=== PATIENT | female | born 1975 | race African-American/Black ===

== ENCOUNTER 2020-06-20 17:05 | Emergency (ER) | payer MEDICAID ==
[~2020-06-20] VITALS: Ht 160 cm; Wt 90.2 kg
--- NOTE | 2020-06-20 17:24 | EKG ---
[address] [address] Test Date: 2020-06-20 Test Time: 17:14:51 Pat Name: [facility] Department: Room: Gender: F Highway Maintainer: CRISTIAN : 1975 Requested By: COSMO SIMMONS Order Number: [id number] Reading MD: Measurements Intervals [place] Rate: 104 P: 42 AR: 164 QRS: 25 QRSD: 84 T: 46 QT: 328 QTc: 432 Interpretive Statements SINUS TACHYCARDIA LEFT ATRIAL ABNORMALITY INCOMPLETE RIGHT BUNDLE BRANCH BLOCK ABNORMAL ECG RI6.02 No previous ECG available for comparison
--- NOTE | 2020-06-20 17:28 | PHYS DOC ---
Past History Past Medical History: Hypertension (COSMO SIMMONS APRN) Past Surgical History: (COSMO SIMMONS APRN) Alcohol Use: Occasionally (COSMO SIMMONS APRN) Adult General Chief Complaint Chief Complaint: CHEST PAIN HPI HPI Patient is a female with history of hypertension presenting to the ED today complaining of 8 out of 10 sharp left-sided chest pain constantly for 2 weeks. She states she tried [place] which helped a little but it comes back. Patient denies any fever, coughing, congestion. Reports nothing specifically exacerbates the pain. (COSMO SIMMONS APRN) Review of Systems Review of Systems Constitutional: Denies fever or chills [] Eyes: Denies change in visual acuity, redness, or eye pain [] HENT: Denies nasal congestion or sore throat [] Respiratory: Denies cough or shortness of breath [] Cardiovascular: Reports left-sided chest pain GI: Denies abdominal pain, nausea, vomiting, bloody stools or diarrhea [] : Denies dysuria or hematuria [] Musculoskeletal: Denies back pain or joint pain [] Integument: Denies rash or skin lesions [] Neurologic: Denies headache, focal weakness or sensory changes [] All other systems were reviewed and found to be within normal limits, except as documented in this note. (COSMO SIMMONS APRN) Current Medications Current Medications Current Medications Medications (Trade) Dose Ordered Sig/Jeff Start Time Stop Time Status Last Admin Dose Admin Aspirin (Wm Aspirin) 325 mg 1X ONCE 06/20/20 17:30 06/20/20 17:31 Morphine Sulfate (Morphine 2mg Syringe) 2 mg PRN Q15MIN PRN 06/20/20 17:30 06/21/20 17:29 Nitroglycerin (Nitrostat) 0.4 mg PRN Q5MIN PRN 06/20/20 17:30 06/21/20 17:29 (COSMO SIMMONS APRN) Allergies Allergies Allergies Coded Allergies Type Severity Reaction Last Updated Verified No Known Drug Allergies 06/20/20 No (COSMO SIMMONS APRN) Physical Exam Physical Exam Constitutional: Well developed, well nourished, no acute distress, non-toxic appearance. [] HENT: Normocephalic, atraumatic, bilateral external ears normal, oropharynx moist, no oral exudates, nose normal. [] Eyes: PERRLA, EOMI, conjunctiva normal, no discharge. [] Neck: Normal range of motion, no tenderness, supple, no stridor. [] Cardiovascular:Heart rate regular rhythm, no murmur [] Lungs & Thorax: Bilateral breath sounds clear to auscultation [] Abdomen: Bowel sounds normal, soft, no tenderness, no masses, no pulsatile masses. [] Skin: Warm, dry, no erythema, no rash. [] Back: No tenderness, no CVA tenderness. [] Extremities: No tenderness, no cyanosis, no clubbing, ROM intact, no edema. [] Neurologic: Alert and oriented X 3, normal motor function, normal sensory function, no focal deficits noted. [] Psychologic: Affect normal, judgement normal, mood normal. [] (COSMO SIMMONS APRN) Current Patient Data Vital Signs Vital Signs Date Time Temp Pulse Resp B/P (MAP) Pulse Ox O2 Delivery O2 Flow Rate FiO2 06/20/20 17:05 99.3 104 20 162/98 (119) 98 Room Air (COSMO SIMMONS APRN) EKG EKG interpreted by Dr. Machado sinus tachycardia heart rate 104 no STEMI (COSMO SIMMONS APRN) Radiology/Procedures Radiology/Procedures []PROCEDURE: PORTABLE CHEST 1V PORTABLE CHEST 1V Clinical History: Reason: chest pain / Spl. Instructions: / History: Technique: AP view of the chest was obtained at 06/20/2020 5:16 PM. Comparison: None. Findings: The cardiomediastinal silhouette is normal. The pulmonary vasculature is normal. The lungs and pleural margins are clear. Impression: No evidence of an acute cardiopulmonary process. Electronically signed by: Tyler Hinton III, MD (06/20/2020 5:58 PM) [facility] DICTATED AND SIGNED BY: TYLER HINTON III, MD DATE: 06/20/20 1758 CC: SOY REDDY; RAYMUNDO; COSMO SIMMONS APRN ~ PROCEDURE: CT ANGIOGRAPHY CHEST CTA Chest with contrast: Clinical History: Reason: OMNI 350, 85ML IV. Chest pain.REDUCED DOSE DUE TO LABS / Spl. Instructions: / History: Shortness of breath. Axial helical images of the chest were obtained after the administration of 85 cc of IV Omni 350 and timed appropriately for a pulmonary arterial study. Conventional axial reconstruction was performed in addition to coronal, sagittal and bilateral oblique MIP (maximum intensity projection). This study was ordered to detect possible pulmonary embolism. There are no filling defects to suggest pulmonary embolism. The lungs and pleural margins are clear. There is no mediastinal or hilar lymphadenopathy. The thoracic aorta appears normal. Impression: 1. No evidence of pulmonary embolism. 2. No significant findings. PQRS Compliance Statement: One or more of the following individualized dose reduction techniques were utilized for this examination: 1. Automated exposure control 2. Adjustment of the mA and/or kV according to patient size 3. Use of iterative reconstruction technique Electronically signed by: Tyler Hinton III, MD (06/20/2020 8:38 PM) [facility] DICTATED AND SIGNED BY: TYLER HINTON III, MD DATE: 06/20/202037 CC: SOY REDDY; COSMO SIMMONS APRN; CANDELARIO HOLLY DO ~ (COSMO SIMMONS APRN) Heart Score HEART Score for Chest Pain: HEART Score for Chest Pain Response (Comments) Value History Slighlty/Non-Suspicious 0 ECG Normal 0 Age < 45 0 Risk Factors 1 or 2 Risk Factors 1 Troponin < Normal Limit 0 Total 1 Risk Factors: Risk Factors: DM, Current or recent (<one month) smoker, HTN, HLP, family history of CAD, obesity. Risk Scores: Risk Factors: DM, Current or recent (<one month) smoker, HTN, HLP, family history of CAD, obesity. (COSMO SIMMONS APRN) Course & Med Decision Making Course & Med Decision Making Pertinent Labs and Imaging studies reviewed. (See chart for details) This is a 44-year-old female patient presenting to the ED today complaining of chest pain for 2 weeks. Heart score is 1. PERC score is 2. D dimer 0.61. CBC with a WBC of 12.7. Heart rates have been in the 120s to low 100s patient states it is because she is nervous she states she has "white coat syndrome". CMP with K of 3.3 given one dose of oral k. She was given IV fluids, CT chest angio was obtained which was negative. Drug screen was positive for marijuana use. Discharge to home. She has an appointment with her PCP on 29 June 2020. She was provided return precautions. Provided cardiology for follow-up as well. (COSMO SIMMONS APRN) Dragon Disclaimer Dragon Disclaimer This electronic medical record was generated, in whole or in part, using a voice recognition dictation system. (COSMO SIMMONS APRN) PERC Rule for PE PERC Rule for PE Response (Comments) Value Age > 50: No 0 HR > 100: Yes 1 Sa02 on room air <95%: No 0 Unilateral leg swelling: No 0 Hemoptysis: No 0 Recent surgery or trauma: No 0 Prior PE or DVT: No 0 Hormone use: Yes 1 Total 2 Departure Departure: Impression: Primary Impression: Chest pain Additional Impression: Tachycardia Disposition: 01 DC HOME SELF CARE/HOMELESS Condition: STABLE Referrals: SOY REDDY (PCP) Follow-up as scheduled MORALES CRONIN MD follow up as soon as you can Patient Instructions: Chest Pain (Nonspecific), Nonspecific Tachycardia Additional Instructions: You were evaluated in the emergency room, your work-up was negative for any acute findings. Please follow-up with your primary care doctor as scheduled. 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 Come back to the ED at any point symptoms worsen. Attending Signature Attending Signature I was personally available for consult in the emergency department. I have rev iewed the chart and agree with the documentation as recorded by the MADINA including the assessment, treatment plan and disposition. (CANDELARIO HOLLY DO) Problem Qualifiers Primary Impression: Chest pain Chest pain type: unspecified Qualified Codes: R07.9 - Chest pain, unspe cified COSMO SIMMONS APRN Jun 20, 2020 17:28 CANDELARIO HOLLY DO Jun 21, 2020 05:21
[2020-06-20] MEDS ORDERED: MORPHINE SULFATE 2 MG/ML DISP.SYRIN. IV/SQ PRN (17:30)
[2020-06-20] MEDS ORDERED: ASPIRIN 325 MG TABLET PO ONE (17:30)
[2020-06-20] MEDS ORDERED: NITROGLYCERIN SUBLINGUAL 0.4 MG BOTTLE OF 25. SL PRN (17:30)
[2020-06-20 18:01] LABS: BASO # 0.1 x10^3/uL (0.0-0.2); BASO % 1 % (0-3); EOS % 0 % (0-3); HEMATOCRIT 35.2 % (36.0-47.0); HEMOGLOBIN 11.5 g/dL (12.0-15.5); LYMPH # 2.4 x10^3/uL (1.0-4.8); LYMPH % 19 % (24-48); MEAN CORPUSCULAR HEMOGLOBIN 27 pg (25-35); MEAN CORPUSCULAR HGB CONC 33 g/dL (31-37); MEAN CORPUSCULAR VOLUME 83 fL (79-100); MONO # 0.6 x10^3/uL (0.0-1.1); MONO % 5 % (0-9); NEUT # 9.6 x10^3uL (1.8-7.7); NEUT % 75 % (31-73); PLATELET COUNT 359 x10^3/uL (140-400); RED BLOOD COUNT 4.23 x10^6/uL (3.50-5.40); RED CELL DISTRIBUTION WIDTH 14.9 % (11.5-14.5); WHITE BLOOD COUNT 12.7 x10^3/uL (4.0-11.0)
--- NOTE | 2020-06-20 18:01 | RAD ---
PORTABLE CHEST 1V Clinical History: Reason: chest pain / Spl. Instructions: / History: Technique: AP view of the chest was obtained at 06/20/2020 5:16 PM. Comparison: None. Findings: The cardiomediastinal silhouette is normal. The pulmonary vasculature is normal. The lungs and pleural margins are clear. Impression: No evidence of an acute cardiopulmonary process. Electronically signed by: Jan Escalante III, MD (06/20/2020 5:58 PM) [facility]
[2020-06-20 18:12] LABS: ANION GAP 14 (6-14); BLOOD UREA NITROGEN 13 mg/dL (7-20); BUN/CREATININE RATIO 11 (6-20); CALCIUM 8.9 mg/dL (8.5-10.1); CARBON DIOXIDE 24 mmol/L (21-32); CHLORIDE 101 mmol/L (98-107); CREATININE 1.2 mg/dL (0.6-1.0); GFR 59.6; GLUCOSE 144 mg/dL (70-99); POTASSIUM 3.3 mmol/L (3.5-5.1); SODIUM 139 mmol/L (136-145)
[2020-06-20] MEDS ORDERED: IV NORMAL SALINE 1,000ML 1,000 ML IV ONE (18:15)
[2020-06-20 18:20] LABS: BARBITURATES NEG (NEG); BENZODIAZEPINES NEG (NEG); CANNABINOIDS POS (NEG); COCAINE NEG (NEG); METHADONE NEG (NEG); OPIATES NEG (NEG); PHENCYCLIDINE NEG (NEG)
[2020-06-20 18:21] LABS: AMPHETAMINE/METHAMPHETAMINE NEG (NEG)
[2020-06-20 18:25] LABS: BACTERIA,URINE 0 /HPF (0-FEW); BILIRUBIN,URINE NEG (NEG); CLARITY,URINE CLEAR; COLOR,URINE YELLOW; GLUCOSE,URINE NEG (NEG); NITRITE,URINE NEG (NEG); RBC,URINE 0 /HPF (0-2); SQUAMOUS EPITHELIAL CELL,UR OCC /LPF; UROBILINOGEN,URINE 0.2 mg/dL (0.2 mg/dL); WBC,URINE 0 /HPF (0-4)
[2020-06-20 18:28] LABS: ALBUMIN 3.8 g/dL (3.4-5.0); ALBUMIN/GLOBULIN RATIO 0.8 (1.0-1.7); ALK PHOS 69 U/L (46-116); ALT (SGPT) 22 U/L (14-59); AST (SGOT) 12 U/L (15-37); MAGNESIUM 2.3 mg/dL (1.8-2.4); TOTAL BILIRUBIN 0.1 mg/dL (0.2-1.0); TOTAL PROTEIN 8.4 g/dL (6.4-8.2)
[2020-06-20] MEDS ORDERED: CONTRAST GIVEN. MC PRN (19:30)
[2020-06-20] MEDS ORDERED: IOHEXOL 350 MG/ML 100 ML VIAL. IV ONE (19:30)
--- NOTE | 2020-06-20 20:41 | RAD ---
CTA Chest with contrast: Clinical History: Reason: OMNI 350, 85ML IV. Chest pain.REDUCED DOSE DUE TO LABS / Spl. Instructions: / History: Shortness of breath. Axial helical images of the chest were obtained after the administration of 85 cc of IV Omni 350 and timed appropriately for a pulmonary arterial study. Conventional axial reconstruction was performed in addition to coronal, sagittal and bilateral oblique MIP (maximum intensity projection). This study was ordered to detect possible pulmonary embolism. There are no filling defects to suggest pulmonary embolism. The lungs and pleural margins are clear. There is no mediastinal or hilar lymphadenopathy. The thoracic aorta appears normal. Impression: 1. No evidence of pulmonary embolism. 2. No significant findings. PQRS Compliance Statement: One or more of the following individualized dose reduction techniques were utilized for this examination: 1. Automated exposure control 2. Adjustment of the mA and/or kV according to patient size 3. Use of iterative reconstruction technique Electronically signed by: Jan Escalante III, MD (06/20/2020 8:38 PM) [facility]
[2020-06-20 21:00] VITALS: BP 152/99
== END 2020-06-20 21:07 | disposition home or self-care (01) ==
LOC: ER 17:05
DX: R07.89 Other chest pain (principal); R00.0 Tachycardia, unspecified; I10 Essential (primary) hypertension
CPT/HCPCS: 36415; 71045; 71275; 80053; 80307; 81001; 81025; 82553; 83735; 83880; 84443; 84484; 85025; 85379; 85610; 85730; 93005; 96360; 99285; J7030; Q9967

== ENCOUNTER 2021-04-28 02:46 | Emergency (ER) | payer MEDICAID ==
[~2021-04-28] VITALS: Ht 165.1 cm; Wt 85.8 kg
[2021-04-28 03:01] VITALS: BP 155/88
--- NOTE | 2021-04-28 03:11 | PHYS DOC ---
Past History Past Medical History: Hypertension Additional Past Medical Histor: BV/HPV Past Surgical History: Additional Past Surgical Histo: Breast reduction Alcohol Use: Occasionally Adult General Chief Complaint Chief Complaint: ABDOMINAL PAIN HPI HPI Patient is an otherwise healthy 45-year-old female who presents with a chief complaint of abdominal cramping. States she started taking metronidazole 3 days ago for bacterial vaginosis and noticed that shortly after started taking it she was having some abdominal cramping. States she has not had a bowel movement in a day and a half and think she is constipated and has been taking [id number] enemas. Denies any other recent traumas, travels, illnesses, fevers, chest pain, shortness of breath, dysuria, hematuria, diarrhea or blood in the stool. States her last period was 2 weeks ago and normal. Review of Systems Review of Systems Review of systems otherwise unremarkable except noted in HPI Allergies Allergies Allergies Coded Allergies Type Severity Reaction Last Updated Verified No Known Drug Allergies 06/20/20 No Physical Exam Physical Exam Constitutional: Well developed, well nourished, no acute distress, non-toxic appearance. [] HENT: Normocephalic, atraumatic, bilateral external ears normal, oropharynx moist, no oral exudates, nose normal. [] Eyes: conjunctiva normal, no discharge. [] Neck: Normal range of motion, no tenderness, supple, no stridor. [] Cardiovascular:Heart rate regular rhythm, no murmur [] Lungs & Thorax: Bilateral breath sounds clear to auscultation [] Abdomen: soft, no tenderness, no masses, no pulsatile masses. [] Skin: Warm, dry, no erythema, no rash. [] Back: no CVA tenderness. [] Extremities: No tenderness, no cyanosis, no clubbing, ROM intact, no edema. [] Neurologic: Alert and oriented X 3, no focal deficits noted. [] Psychologic: Affect normal, judgement normal, mood normal. [] Current Patient Data Vital Signs Vital Signs Date Time Temp Pulse Resp B/P (MAP) Pulse Ox O2 Delivery O2 Flow Rate FiO2 04/28/21 03:01 155/88 (110) 04/28/21 03:00 98.6 113 18 100 04/28/21 02:59 Room Air EKG EKG [] Radiology/Procedures Radiology/Procedures Imaging with small to moderate amount of stool with nonobstructive bowel gas pattern [] Heart Score C/O Chest Pain: No Risk Factors: Risk Factors: DM, Current or recent (<one month) smoker, HTN, HLP, family history of CAD, obesity. Risk Scores: Risk Factors: DM, Current or recent (<one month) smoker, HTN, HLP, family history of CAD, obesity. Course & Med Decision Making Course & Med Decision Making Patient is a 45-year-old female presents with abdominal cramping that started after beginning a course of metronidazole Vital signs initially notable for sinus tachycardia and hypertension which improved while sitting in the emergency department. Physical exam noted above. Given pain medicine. Imaging with mild to moderate constipation and some bowel gas. Urine suggestive of UTI. Started on Keflex. Discussed all findings with patient. Advised to follow-up in the morning with her primary care physician. Gave return precautions to the ED. Patient grateful, verbalized understanding agree with plan of discharge. Dragon Disclaimer Dragon Disclaimer This electronic medical record was generated, in whole or in part, using a voice recognition dictation system. Departure Departure: Disposition: HOME / SELF CARE / HOMELESS Condition: GOOD Referrals: SOY REDDY (PCP) Patient Instructions: Constipation, Adult, Urinary Tract Infection Additional Instructions: Thank you for coming into the emergency department tonight and allowing us to take care of you. Please read the attached information carefully to go back over things we discussed. Please adjust her diet accordingly and take [id number] stool softeners for your constipation. Please stay well- hydrated. Please take your antibiotics as prescribed until gone. Please follow- up in the morning with your primary care physician to update on your ED visit. Please come back to the ED with new or concerning symptoms as discussed. Scripts Cephalexin (KEFLEX) 500 Mg Capsule 1 CAP PO BID for UTI for 5 Days, #10 CAP Prov: CHANDNI LEA MD 04/28/21 CHANDNI LEA MD Apr 28, 2021 03:11
[2021-04-28] MEDS ORDERED: DICYCLOMINE HCL 10 MG CAPSULE PO ONE (03:15)
[2021-04-28 03:42] LABS: BILIRUBIN,URINE NEG (NEG); CLARITY,URINE HAZY; COLOR,URINE YELLOW; GLUCOSE,URINE NEG (NEG); U PREG PATIENT NEGATIVE (NEG)
[2021-04-28 03:43] LABS: BACTERIA,URINE MOD /HPF (0-FEW); NITRITE,URINE NEG (NEG); RBC,URINE OCC /HPF (0-2); SQUAMOUS EPITHELIAL CELL,UR MANY /LPF; UROBILINOGEN,URINE 0.2 mg/dL (0.2 mg/dL)
[2021-04-28] MEDS ORDERED: DICYCLOMINE HCL 20 MG TABLET ONE (03:44)
[2021-04-28] MEDS ORDERED: CEPH500C PO (04:18)
[2021-04-28] MEDS ORDERED: CEPHALEXIN 250 MG CAPSULE PO ONE (04:30)
--- NOTE | 2021-04-28 07:04 | RAD ---
XR ABDOMEN COMP ACUTE INDICATION: constipation COMPARISON STUDY: None. FINDINGS: Lungs: Normal lung volume. No pulmonary mass or consolidation. The tracheobronchial tree and hilar st ructures are normal. Pleura: No pleural effusion or pneumothorax. Heart and Mediastinum: The cardiomediastinal silhouette is normal. The great vessels of the thorax ar e normal. Abdomen: No free air. Nonobstructive bowel gas pattern. Moderate colonic stool burden. IMPRESSION: Moderate colonic stool burden. Electronically signed by: Tung Lai MD (04/28/2021 7:02 AM) [id number]
== END 2021-04-28 04:42 | disposition home or self-care (01) ==
LOC: ER 02:46
DX: K59.00 Constipation, unspecified (principal); R10.9 Unspecified abdominal pain; I10 Essential (primary) hypertension; Z98.890 Other specified postprocedural states
CPT/HCPCS: 74022; 81001; 81025; 87086; 99284

== ENCOUNTER 2021-05-20 07:26 | Emergency (ER) | payer MEDICAID ==
[~2021-05-20] VITALS: Ht 165.1 cm; Wt 84.0 kg
[~2021-05-20 07:26] MED LIST: CEPH500C PO
[2021-05-20] MEDS ORDERED: ONDANSETRON PF 4 MG/2 ML VIAL. IVP ONE (07:45)
[2021-05-20] MEDS ORDERED: IV NORMAL SALINE 1,000ML 1,000 ML IV ONE (07:45)
--- NOTE | 2021-05-20 07:55 | PHYS DOC ---
Past History Past Medical History: Hypertension Additional Past Medical Histor: BV/HPV Past Surgical History: Additional Past Surgical Histo: Breast reduction Alcohol Use: Occasionally General Adult EDM: Chief Complaint: ABDOMINAL PAIN HPI: HPI: 45-year-old female presents with left lower quadrant abdominal pain and vaginal bleeding. The patient had pain symptoms like this about a month ago and was diagnosed with a UTI. She took all of her medications and her symptoms resolved. Yesterday and again this morning she started having pain in the same area again. She has not had dysuria. Patient has had some constipation lately but is taking a laxative. She is having bowel movements. She denies any blood with her stool. The patient's last menstrual cycle ended on the of this month so she should not be bleeding right now. She denies any hormonal treatments or control medications. Denies fever or chills. Review of Systems: Review of Systems: Constitutional: Denies fever or chills Eyes: Denies change in visual acuity HENT: Denies nasal congestion or sore throat Respiratory: Denies cough or shortness of breath Cardiovascular: Denies chest pain or edema GI: Left lower quadrant abdominal pain. Denies nausea, vomiting, bloody stools or diarrhea : Vaginal bleeding Musculoskeletal: Denies back pain or joint pain Integument: Denies rash Neurologic: Denies headache, focal weakness or sensory changes Endocrine: Denies polyuria or polydipsia Lymphatic: Denies swollen glands Psychiatric: Denies depression or anxiety Current Medications: Current Meds: Current Medications Medications (Trade) Dose Ordered Sig/Jeff Start Time Stop Time Status Last Admin Dose Admin Ondansetron HCl (Zofran) 4 mg 1X ONCE 05/20/21 07:45 05/20/21 07:46 DC Sodium Chloride 1,000 ml @ 1,000 mls/hr 1X ONCE 05/20/21 07:45 05/20/21 08:44 Allergies: Allergies: Allergies Coded Allergies Type Severity Reaction Last Updated Verified No Known Drug Allergies 05/20/21 No Physical Exam: PE: Constitutional: Well developed, well nourished, obese, no acute distress, non- toxic appearance. [] HENT: Normocephalic, atraumatic, bilateral external ears normal, oropharynx moist, no oral exudates, nose normal. [] Eyes: PERRLA, EOMI, conjunctiva normal, no discharge. [] Neck: Normal range of motion, no tenderness, supple, no stridor. [] Cardiovascular: Heart rate regular rhythm, no murmur [] Lungs & Thorax: Bilateral breath sounds clear to auscultation [] Abdomen: Bowel sounds normal, soft, mild suprapubic tenderness, no masses, no pulsatile masses. [] Skin: Warm, dry, no erythema, no rash. [] Back: No tenderness, no CVA tenderness. [] Extremities: No tenderness, no cyanosis, no clubbing, ROM intact, no edema. [] Neurologic: Alert and oriented X 3, normal motor function, normal sensory function, no focal deficits noted. [] Psychologic: Affect normal, judgement normal, mood normal. [] Current Patient Data: Vital Signs: Vital Signs Date Time Temp Pulse Resp B/P (MAP) Pulse Ox O2 Delivery O2 Flow Rate FiO2 05/20/21 07:38 98.8 106 22 117/86 (96) 100 Room Air EKG: EKG: [] Radiology/Procedures: Radiology/Procedures: [] Heart Score: C/O Chest Pain: N/A Risk Factors: Risk Factors: DM, Current or recent (<one month) smoker, HTN, HLP, family history of CAD, obesity. Risk Scores: Score 0 - 3: 2.5% MACE over next 6 weeks - Discharge Home Score 4 - 6: 20.3% MACE over next 6 weeks - Admit for Clinical Observation Score 7 - 10: 72.7% MACE over next 6 weeks - Early Invasive Strategies Course & Med Decision Making: Course & Med Decision Making Pertinent Labs and Imaging studies reviewed. (See chart for details) The patient's labs are unremarkable. She is not anemic. Her urinalysis is negative for infection. She is not . The patient may just be having intermenstrual bleeding and associated cramping. She agrees this is likely. She has left a message with her [employer]VESTIGATION DIVISION [employer]TAIN to see that provider in the next day or 2. The patient does not believe a CT scan is necessary. I agree. She is stable for discharge at this time. [] Dragon Disclaimer: Dragon Disclaimer: This electronic medical record was generated, in whole or in part, using a voice recognition dictation system. Departure Departure: Impression: Primary Impression: Left lower quadrant abdominal pain Additional Impression: Metrorrhagia Disposition: HOME / SELF CARE / HOMELESS Condition: STABLE Referrals: SOY REDDY (PCP) Patient Instructions: Alen [id number] GARTH JULIAN DO May 20, 2021 07:55
[2021-05-20 08:23] LABS: BASO % 1 % (0-3); EOS # 0.1 x10^3/uL (0.0-0.7); EOS % 1 % (0-3); HEMATOCRIT 36.2 % (36.0-47.0); HEMOGLOBIN 12.1 g/dL (12.0-15.5); LYMPH % 19 % (24-48); MEAN CORPUSCULAR HEMOGLOBIN 27 pg (25-35); MEAN CORPUSCULAR HGB CONC 34 g/dL (31-37); MEAN CORPUSCULAR VOLUME 81 fL (79-100); MONO # 0.7 x10^3/uL (0.0-1.1); MONO % 7 % (0-9); NEUT # 7.4 x10^3uL (1.8-7.7); NEUT % 73 % (31-73); PLATELET COUNT 387 x10^3/uL (140-400); RED BLOOD COUNT 4.49 x10^6/uL (3.50-5.40); RED CELL DISTRIBUTION WIDTH 16.8 % (11.5-14.5); WHITE BLOOD COUNT 10.2 x10^3/uL (4.0-11.0)
[2021-05-20 08:33] LABS: CALCIUM 9.7 mg/dL (8.5-10.1); CREATININE 0.9 mg/dL (0.6-1.0); GFR 82.7; POTASSIUM 3.2 mmol/L (3.5-5.1)
[2021-05-20 08:38] LABS: ALBUMIN 4.2 g/dL (3.4-5.0); ALBUMIN/GLOBULIN RATIO 0.9 (1.0-1.7); TOTAL BILIRUBIN 0.4 mg/dL (0.2-1.0)
[2021-05-20 09:27] LABS: BILIRUBIN,URINE NEG (NEG); CLARITY,URINE HAZY; COLOR,URINE YELLOW; GLUCOSE,URINE NEG (NEG); NITRITE,URINE NEG (NEG); UROBILINOGEN,URINE 0.2 mg/dL (0.2 mg/dL)
[2021-05-20 09:28] LABS: BACTERIA,URINE FEW /HPF (0-FEW); SQUAMOUS EPITHELIAL CELL,UR MOD /LPF
[2021-05-20 09:44] VITALS: BP 114/72
== END 2021-05-20 09:44 | disposition home or self-care (01) ==
LOC: ER 07:26
DX: N92.1 Excessive and frequent menstruation with irregular cycle (principal); K59.00 Constipation, unspecified; R10.32 Left lower quadrant pain; I10 Essential (primary) hypertension; Z98.890 Other specified postprocedural states
CPT/HCPCS: 36415; 80053; 81001; 81025; 85025; 87086; 96361; 96374; 99283; J2405; J7030